=== PATIENT | female | born 1955 | race Hispanic/Latino ===

== ENCOUNTER 2023-10-21 15:48 | Inpatient (IN) | payer MEDICARE ==
[2023-10-21 16:40] LABS: #Eosinphils 0.1 10x3/uL (0.0-0.5); #Monocytes 0.6 10x3/uL (0.0-1.1); #Neutrophils 3.7 10x3/uL (1.5-8.4); %Basophils 0.4 % (0.0-2.0); %Eosinophils 1.9 % (0.0-6.0); %Monocytes 12.3 % (0.0-10.0); %Neutrophils 71.2 % (40.0-75.0); Hematocrit 32.1 % (34.9-44.5); Hemoglobin 10.5 g/dL (12.0-15.5); Mean Corpuscular HGB CONC 32.7 g/dL (32.0-36.0); Mean Corpuscular Hemoglobin 32.5 pg (27.0-33.0); Mean Corpuscular Volume 99.4 fl (81.6-98.3); Mean Platelet Volume 12.4 fl (7.4-10.4); Platelet Count 111 10x3/uL (150-450); RBC Distribution Width 17.6 % (11.5-14.5); Red Blood Cell (RBC) Count 3.23 10x6/uL (3.90-5.03); White Blood Cell (WBC) Count 5.1 10x3/uL (3.5-10.5)
[2023-10-21 16:44] LABS: ALT (SGPT) 80 U/L (8-55); AST (SGOT) 238 U/L (5-34); Albumin 2.6 g/dL (3.4-4.8); Alcohol Less than 10.0 mg/dL (Less than 10); Alkaline Phosphatase 107 U/L (40-110); Anion Gap 13 mmol/L (10-20); BUN (Urea Nitrogen) 9 mg/dL (9.8-20.1); Bilirubin, Total 1.9 mg/dL (0.2-1.2); Calc. Creatinine Clearance 0 mL/min (70-130); Calcium 8.2 mg/dL (7.8-10.44); Carbon Dioxide 32 mmol/L (23-31); Chloride 98 mmol/L (98-107); Estimated GFR 96; Glucose 99 mg/dL (80-115); Lipase 20 U/L (8-78); Magnesium 1.3 mg/dL (1.6-2.6); Protein, Total 6.6 g/dL (5.8-8.1); Sodium 140 mmol/L (136-145)
[2023-10-21 16:50] LABS: Troponin I 0.018 ng/mL (< 0.028)
[2023-10-21 16:56] LABS: Anisocytosis SLIGHT = 6-15 cells (100X) (0-5/hpf); Hypochromia SLIGHT = 6-15 cells (100X) (0-5/hpf); Large Platelets SLIGHT (None Seen); Platelet Adequacy Comment Appears Decreased; Polychromasia SLIGHT = 2-3 cells (100X) (0-2/hpf)
[2023-10-21 17:06] LABS: Amphetamine Not Detected (NotDetected); Barbiturates Screen Not Detected (NotDetected); Benzodiazepine Screen Not Detected (NotDetected); Cocaine Metabolite Screen Not Detected (NotDetected); Methadone Not Detected (NotDetected); Methamphetamine Not Detected (NotDetected); Opiate Screen Detected (NotDetected); Oxycodone Screen Detected (NotDetected); Phencyclidine (PCP) Not Detected (NotDetected); THC/Cannabinoid Screen Not Detected (NotDetected); Tricyclic Screen Not Detected (NotDetected)
[2023-10-21 17:07] LABS: Bilirubin Neg (Negative); Blood, Urine 250 (Negative); Clarity Slightly Cloudy (Clear); Glucose, Urine (Dipstick) Normal (Negative); Ketone, Urine Negative (Negative); Leukocyte 25 (Negative); Nitrite Negative (Negative); Protein, Urine (Dipstick) 30 mg/dl (Neg-Trace)
[2023-10-21 17:22] LABS: CAUTI Indications for Culture Pelvic or flank pain; RBC/HPF Greater than 50 HPF (0-3); Squamous Epithelial 0-3 HPF (0-3); WBC/HPF 0-3 HPF (0-3)
[2023-10-21 17:23] LABS: Bacteria/HPF Rare-Few HPF (None Seen)
[2023-10-21 17:24] LABS: Urine Culture Reflex No No
[2023-10-21] MEDS ORDERED: Potassium Chloride 20 MEQ TAB ONE (17:27)
[2023-10-21] MEDS ORDERED: Magnesium 2 GM/50 ML BAG (IN WATER) ONE (17:28)
[2023-10-21] MEDS ORDERED: Ketorolac Tromethamine 30 MG (1 mL) VIAL ONE (18:16)
[2023-10-21] MEDS ORDERED: Furosemide 40 MG (4 mL) VIAL ONE (19:04)
[2023-10-21] MEDS ORDERED: Ondansetron PF 4 MG/2 ML Vial IVP PRN (20:38)
[2023-10-21] MEDS ORDERED: Guaifenesin DM 100-10/5 ML UDCUP PO PRN (20:38)
[2023-10-21] MEDS ORDERED: Glucagon 1 MG/ML KIT IM PRN (20:38)
[2023-10-21] MEDS ORDERED: Dextrose 50% Abboject 50 ML SYRINGE SLOW IVP PRN (20:38)
[2023-10-21] MEDS ORDERED: Calcium Carbonate 500 MG ChewTAB PO PRN (20:38)
[2023-10-21] MEDS ORDERED: Senokot S 8.6-50 MG TAB PO PRN (20:38)
[2023-10-21] MEDS ORDERED: HumaLOG 300 UNITS/3 ML VIAL SC PRN (20:38)
[2023-10-21] MEDS ORDERED: Dextrose 5% in Water 1,000 ML IV PRN (20:38)
[2023-10-21] MEDS ORDERED: traZODone HCl 50 MG TAB PO PRN (20:42)
[2023-10-21] MEDS ORDERED: Potassium Chloride 20 MEQ TAB PO SCH (20:45)
[2023-10-21] MEDS ORDERED: Magnesium 2 GM/50 ML(in water) 2 GM in Premix 1 BAG IVPB SCH (21:00)
[2023-10-21] MEDS: oxyCODONE 5 MG TAB PO PRN (23:14)
[2023-10-21] MEDS: Nadolol 40 MG TAB PO SCH (23:43)
[2023-10-21] MEDS: Rifaximin 550 MG TAB PO SCH (23:43)
[2023-10-21] MEDS: Albumin 25% 25 GM (100 mL) BOT IVPB SCH (23:51)
[2023-10-22 03:33] LABS: #Eosinphils 0.1 10x3/uL (0.0-0.5); #Monocytes 0.5 10x3/uL (0.0-1.1); #Neutrophils 2.9 10x3/uL (1.5-8.4); %Basophils 0.5 % (0.0-2.0); %Eosinophils 2.2 % (0.0-6.0); %Lymphocytes 13.8 % (18.0-47.0); %Neutrophils 70.3 % (40.0-75.0); Hemoglobin 9.3 g/dL (12.0-15.5); Mean Corpuscular HGB CONC 32.1 g/dL (32.0-36.0); Mean Corpuscular Hemoglobin 31.8 pg (27.0-33.0); Mean Corpuscular Volume 99.3 fl (81.6-98.3); Platelet Count 99 10x3/uL (150-450); RBC Distribution Width 17.5 % (11.5-14.5); Red Blood Cell (RBC) Count 2.92 10x6/uL (3.90-5.03); White Blood Cell (WBC) Count 4.1 10x3/uL (3.5-10.5)
[2023-10-22] MEDS: oxyCODONE 5 MG TAB PO PRN ×6 (03:33→21:12)
[2023-10-22 04:01] LABS: ALT (SGPT) 68 U/L (8-55); AST (SGOT) 187 U/L (5-34); Albumin 2.9 g/dL (3.4-4.8); Alkaline Phosphatase 90 U/L (40-110); Anion Gap 11 mmol/L (10-20); BUN (Urea Nitrogen) 10 mg/dL (9.8-20.1); Calc. Creatinine Clearance 85 mL/min (70-130); Calcium 8.3 mg/dL (7.8-10.44); Carbon Dioxide 33 mmol/L (23-31); Chloride 99 mmol/L (98-107); Estimated GFR 94; Globulin 3.4 g/dL (2.4-3.5); Glucose 131 mg/dL (80-115); Magnesium 2.1 mg/dL (1.6-2.6); Potassium 3.5 mmol/L (3.5-5.1); Protein, Total 6.3 g/dL (5.8-8.1); Sodium 139 mmol/L (136-145)
[2023-10-22 04:02] LABS: Troponin I 0.012 ng/mL (< 0.028)
[2023-10-22 04:18] LABS: INR-International Normal Ratio 1.3; PTT 28.4 sec (22.0-33.0); Prothrombin Time 13.5 sec (9.5-12.1)
[2023-10-22 04:20] LABS: Ovalocytes SLIGHT = 2-5 cells (100X) (0-1/hpf); Platelet Adequacy Comment Appears Decreased; Tear Drops SLIGHT = 2-5 cells (100X) (0-1/hpf)
[2023-10-22] MEDS: Ciprofloxacin 500 MG TAB PO SCH ×2 (06:14→20:25)
[2023-10-22] MEDS: Furosemide 40 MG (4 mL) VIAL SLOW IVP SCH ×2 (06:14→14:11)
[2023-10-22] MEDS: Albumin 25% 25 GM (100 mL) BOT IVPB SCH ×3 (06:15→17:41)
[2023-10-22] MEDS: Spironolactone 25 MG TAB PO SCH (08:35)
[2023-10-22] MEDS: Rifaximin 550 MG TAB PO SCH ×2 (08:36→20:25)
[2023-10-22] MEDS: Multivitamin W/ Minerals 1 TAB PO SCH (08:36)
[2023-10-22] MEDS: Enoxaparin 40 MG (0.4 mL) SYRINGE SC SCH (08:36)
[2023-10-22] MEDS: T PO SCH (08:36)
[2023-10-22] MEDS: Thiamine 100 MG TAB PO SCH (08:36)
[2023-10-22] MEDS: Folic Acid 1 MG TAB PO SCH (08:36)
[2023-10-22] MEDS: Lactulose 20 GM (30 mL) UDCUP PO SCH (08:37)
[2023-10-22] MEDS: Losartan 25 MG TAB PO SCH (08:37)
[2023-10-22] MEDS: Nadolol 40 MG TAB PO SCH (20:27)
[2023-10-23] MEDS: Ciprofloxacin 500 MG TAB PO SCH ×2 (06:30→20:44)
[2023-10-23] MEDS: Furosemide 40 MG (4 mL) VIAL SLOW IVP SCH ×2 (06:30→14:09)
[2023-10-23] MEDS: oxyCODONE 5 MG TAB PO PRN ×4 (06:37→22:27)
[2023-10-23] MEDS: Lactulose 20 GM (30 mL) UDCUP PO SCH (08:13)
[2023-10-23] MEDS: Spironolactone 25 MG TAB PO SCH (08:14)
[2023-10-23] MEDS: T PO SCH (08:14)
[2023-10-23] MEDS: Losartan 25 MG TAB PO SCH (08:14)
[2023-10-23] MEDS: Thiamine 100 MG TAB PO SCH (08:14)
[2023-10-23] MEDS: Folic Acid 1 MG TAB PO SCH (08:14)
[2023-10-23] MEDS: Multivitamin W/ Minerals 1 TAB PO SCH (08:14)
[2023-10-23] MEDS: Rifaximin 550 MG TAB PO SCH ×2 (08:14→20:45)
[2023-10-23 09:42] LABS: Hematocrit 32.7 % (34.9-44.5); Hemoglobin 10.8 g/dL (12.0-15.5); Mean Corpuscular Hemoglobin 32.6 pg (27.0-33.0); Mean Corpuscular Volume 98.8 fl (81.6-98.3); Mean Platelet Volume 12.3 fl (7.4-10.4); Platelet Count 104 10x3/uL (150-450); Red Blood Cell (RBC) Count 3.31 10x6/uL (3.90-5.03); White Blood Cell (WBC) Count 4.7 10x3/uL (3.5-10.5)
[2023-10-23] MEDS: Enoxaparin 40 MG (0.4 mL) SYRINGE SC SCH (09:58)
[2023-10-23 09:59] LABS: Anion Gap 18 mmol/L (10-20); BUN (Urea Nitrogen) 10 mg/dL (9.8-20.1); Calc. Creatinine Clearance 73 mL/min (70-130); Calcium 9.2 mg/dL (7.8-10.44); Carbon Dioxide 33 mmol/L (23-31); Chloride 92 mmol/L (98-107); Estimated GFR 80; Glucose 119 mg/dL (80-115); Potassium 4.1 mmol/L (3.5-5.1); Sodium 139 mmol/L (136-145)
[2023-10-23] MEDS: Nadolol 40 MG TAB PO SCH (20:45)
[2023-10-24] MEDS: oxyCODONE 5 MG TAB PO PRN ×5 (03:25→19:31)
[2023-10-24] MEDS: Furosemide 40 MG (4 mL) VIAL SLOW IVP SCH (06:25)
[2023-10-24] MEDS: Ciprofloxacin 500 MG TAB PO SCH ×2 (06:25→21:07)
[2023-10-24 08:04] LABS: #Eosinphils 0.1 10x3/uL (0.0-0.5); #Monocytes 1.2 10x3/uL (0.0-1.1); #Neutrophils 4.5 10x3/uL (1.5-8.4); %Basophils 0.5 % (0.0-2.0); %Eosinophils 1.7 % (0.0-6.0); %Monocytes 18.1 % (0.0-10.0); %Neutrophils 68.4 % (40.0-75.0); Hematocrit 34.5 % (34.9-44.5); Hemoglobin 11.3 g/dL (12.0-15.5); Mean Corpuscular HGB CONC 32.8 g/dL (32.0-36.0); Mean Corpuscular Hemoglobin 31.4 pg (27.0-33.0); Mean Corpuscular Volume 95.8 fl (81.6-98.3); Mean Platelet Volume 12.8 fl (7.4-10.4); Platelet Count 132 10x3/uL (150-450); RBC Distribution Width 16.9 % (11.5-14.5); White Blood Cell (WBC) Count 6.5 10x3/uL (3.5-10.5)
[2023-10-24 08:05] LABS: Anion Gap 17 mmol/L (10-20); BUN (Urea Nitrogen) 14 mg/dL (9.8-20.1); Calc. Creatinine Clearance 72 mL/min (70-130); Calcium 9.2 mg/dL (7.8-10.44); Carbon Dioxide 32 mmol/L (23-31); Chloride 90 mmol/L (98-107); Estimated GFR 79; Glucose 122 mg/dL (80-115); Potassium 3.4 mmol/L (3.5-5.1); Sodium 136 mmol/L (136-145)
[2023-10-24] MEDS: Spironolactone 25 MG TAB PO SCH (08:39)
[2023-10-24] MEDS: T PO SCH (09:38)
[2023-10-24] MEDS: Losartan 25 MG TAB PO SCH (09:39)
[2023-10-24] MEDS: Folic Acid 1 MG TAB PO SCH (09:39)
[2023-10-24] MEDS: Multivitamin W/ Minerals 1 TAB PO SCH (09:40)
[2023-10-24] MEDS: Thiamine 100 MG TAB PO SCH (09:41)
[2023-10-24] MEDS: Enoxaparin 40 MG (0.4 mL) SYRINGE SC SCH (09:41)
[2023-10-24] MEDS: Lactulose 20 GM (30 mL) UDCUP PO SCH (09:43)
[2023-10-24] MEDS: Rifaximin 550 MG TAB PO SCH ×2 (09:43→21:07)
[2023-10-24] MEDS ORDERED: Potassium Chloride 20 MEQ TAB PO SCH (10:00)
[2023-10-24] MEDS: Nadolol 40 MG TAB PO SCH (21:07)
[2023-10-25] MEDS: oxyCODONE 5 MG TAB PO PRN ×5 (00:41→19:43)
[2023-10-25 01:39] LABS: #Monocytes 1.7 10x3/uL (0.0-1.1); #Neutrophils 6.2 10x3/uL (1.5-8.4); %Basophils 0.5 % (0.0-2.0); %Eosinophils 0.5 % (0.0-6.0); %Monocytes 19.8 % (0.0-10.0); %Neutrophils 69.7 % (40.0-75.0); Hematocrit 33.2 % (34.9-44.5); Hemoglobin 10.9 g/dL (12.0-15.5); Mean Corpuscular HGB CONC 32.8 g/dL (32.0-36.0); Mean Corpuscular Hemoglobin 31.2 pg (27.0-33.0); Mean Corpuscular Volume 95.1 fl (81.6-98.3); Mean Platelet Volume 13.2 fl (7.4-10.4); Platelet Count 118 10x3/uL (150-450); RBC Distribution Width 16.9 % (11.5-14.5); Red Blood Cell (RBC) Count 3.49 10x6/uL (3.90-5.03); White Blood Cell (WBC) Count 8.8 10x3/uL (3.5-10.5)
[2023-10-25 01:40] LABS: ALT (SGPT) 38 U/L (8-55); AST (SGOT) 62 U/L (5-34); Albumin 3.3 g/dL (3.4-4.8); Alkaline Phosphatase 93 U/L (40-110); Anion Gap 17 mmol/L (10-20); BUN (Urea Nitrogen) 16 mg/dL (9.8-20.1); Bilirubin, Total 2.8 mg/dL (0.2-1.2); Calc. Creatinine Clearance 73 mL/min (70-130); Calcium 9.1 mg/dL (7.8-10.44); Carbon Dioxide 29 mmol/L (23-31); Chloride 93 mmol/L (98-107); Estimated GFR 79; Globulin 3.7 g/dL (2.4-3.5); Glucose 140 mg/dL (80-115); Magnesium 1.3 mg/dL (1.6-2.6); Potassium 3.8 mmol/L (3.5-5.1); Sodium 135 mmol/L (136-145)
[2023-10-25] MEDS ORDERED: Potassium Chloride 20 MEQ TAB PO SCH (03:00)
[2023-10-25] MEDS ORDERED: Magnesium 2 GM/50 ML(in water) 2 GM in Premix 1 BAG IVPB SCH (03:00)
[2023-10-25] MEDS ORDERED: Acetaminophen 325 MG TAB PO PRN (03:04)
[2023-10-25] MEDS ORDERED: traMADol HCl 50 MG TAB PO SCH (03:15)
[2023-10-25] MEDS ORDERED: Lidocaine 4% Patch TD SCH (03:15)
[2023-10-25] MEDS: Ciprofloxacin 500 MG TAB PO SCH ×2 (06:08→20:35)
[2023-10-25] MEDS: Enoxaparin 40 MG (0.4 mL) SYRINGE SC SCH (09:50)
[2023-10-25] MEDS: Multivitamin W/ Minerals 1 TAB PO SCH (09:50)
[2023-10-25] MEDS: Magnesium Oxide 400 MG TAB PO SCH ×2 (09:50→20:33)
[2023-10-25] MEDS: Losartan 25 MG TAB PO SCH (09:51)
[2023-10-25] MEDS: Lactulose 20 GM (30 mL) UDCUP PO SCH ×2 (09:51→10:00)
[2023-10-25] MEDS: Folic Acid 1 MG TAB PO SCH (09:51)
[2023-10-25] MEDS: Rifaximin 550 MG TAB PO SCH ×2 (09:51→20:34)
[2023-10-25] MEDS: T PO SCH (09:51)
[2023-10-25] MEDS: Spironolactone 25 MG TAB PO SCH (09:51)
[2023-10-25] MEDS: Thiamine 100 MG TAB PO SCH (09:51)
[2023-10-25] MEDS: Furosemide 40 MG TAB PO SCH (09:55)
[2023-10-25] MEDS ORDERED: LIDOCAINE Patch Removal TOP SCH (15:15)
[2023-10-25] MEDS: Nadolol 40 MG TAB PO SCH (20:34)
[2023-10-26] MEDS: oxyCODONE 5 MG TAB PO PRN ×6 (00:08→20:48)
[2023-10-26 04:09] LABS: Anion Gap 15 mmol/L (10-20); BUN (Urea Nitrogen) 20 mg/dL (9.8-20.1); Calc. Creatinine Clearance 73 mL/min (70-130); Calcium 9.1 mg/dL (7.8-10.44); Carbon Dioxide 30 mmol/L (23-31); Chloride 94 mmol/L (98-107); Estimated GFR 80; Glucose 105 mg/dL (80-115); Magnesium 1.9 mg/dL (1.6-2.6); Potassium 3.9 mmol/L (3.5-5.1); Sodium 135 mmol/L (136-145)
[2023-10-26] MEDS: Ciprofloxacin 500 MG TAB PO SCH ×2 (06:02→20:50)
[2023-10-26] MEDS: Folic Acid 1 MG TAB PO SCH (08:18)
[2023-10-26] MEDS: Thiamine 100 MG TAB PO SCH (08:18)
[2023-10-26] MEDS: Multivitamin W/ Minerals 1 TAB PO SCH (08:18)
[2023-10-26] MEDS: Losartan 25 MG TAB PO SCH (08:18)
[2023-10-26] MEDS: Spironolactone 25 MG TAB PO SCH (08:18)
[2023-10-26] MEDS: T PO SCH (08:18)
[2023-10-26] MEDS: Furosemide 40 MG TAB PO SCH (08:18)
[2023-10-26] MEDS: Rifaximin 550 MG TAB PO SCH ×2 (08:18→20:50)
[2023-10-26] MEDS: Lactulose 20 GM (30 mL) UDCUP PO SCH (08:19)
[2023-10-26] MEDS: Enoxaparin 40 MG (0.4 mL) SYRINGE SC SCH (08:19)
[2023-10-26] MEDS: Nadolol 40 MG TAB PO SCH (20:49)
[2023-10-27] MEDS: oxyCODONE 5 MG TAB PO PRN ×4 (01:13→22:56)
[2023-10-27 03:48] LABS: Anion Gap 15 mmol/L (10-20); BUN (Urea Nitrogen) 22 mg/dL (9.8-20.1); Calc. Creatinine Clearance 73 mL/min (70-130); Carbon Dioxide 28 mmol/L (23-31); Chloride 93 mmol/L (98-107); Estimated GFR 80; Glucose 118 mg/dL (80-115); Magnesium 1.8 mg/dL (1.6-2.6); Potassium 3.2 mmol/L (3.5-5.1); Sodium 133 mmol/L (136-145)
[2023-10-27] MEDS ORDERED: Magnesium 2 GM/50 ML(in water) 2 GM in Premix 1 BAG IVPB SCH (09:00)
[2023-10-27] MEDS ORDERED: Sodium Chloride 0.9% 500 ML IV SCH ×2 (09:00→09:07)
[2023-10-27] MEDS: Ciprofloxacin 500 MG TAB PO SCH (09:14)
[2023-10-27] MEDS: Spironolactone 25 MG TAB PO SCH (09:14)
[2023-10-27] MEDS: Furosemide 40 MG TAB PO SCH (09:14)
[2023-10-27 10:46] VITALS: BMI 25.7
[2023-10-27] MEDS: Folic Acid 1 MG TAB PO SCH (11:13)
[2023-10-27] MEDS: Lactulose 20 GM (30 mL) UDCUP PO SCH (11:13)
[2023-10-27] MEDS: Losartan 25 MG TAB PO SCH (11:13)
[2023-10-27] MEDS: Enoxaparin 40 MG (0.4 mL) SYRINGE SC SCH (11:13)
[2023-10-27] MEDS: Multivitamin W/ Minerals 1 TAB PO SCH (11:14)
[2023-10-27] MEDS: Potassium Chloride 20 MEQ TAB PO SCH ×2 (11:14→14:22)
[2023-10-27] MEDS: Thiamine 100 MG TAB PO SCH (11:14)
[2023-10-27] MEDS: Rifaximin 550 MG TAB PO SCH ×2 (11:14→21:41)
[2023-10-27] MEDS: T PO SCH (11:14)
[2023-10-27 13:33] LABS: Anion Gap 18 mmol/L (10-20); BUN (Urea Nitrogen) 25 mg/dL (9.8-20.1); Calc. Creatinine Clearance 66 mL/min (70-130); Calcium 9.5 mg/dL (7.8-10.44); Carbon Dioxide 27 mmol/L (23-31); Chloride 96 mmol/L (98-107); Estimated GFR 72; Glucose 117 mg/dL (80-115); Potassium 4.4 mmol/L (3.5-5.1); Sodium 137 mmol/L (136-145)
[2023-10-27] MEDS: Nadolol 40 MG TAB PO SCH (21:41)
[2023-10-28] MEDS: oxyCODONE 5 MG TAB PO PRN ×2 (02:08→06:41)
[2023-10-28 04:58] LABS: #Basophils 0.1 10x3/uL (0.0-0.2); #Eosinphils 0.2 10x3/uL (0.0-0.5); #Monocytes 1.1 10x3/uL (0.0-1.1); #Neutrophils 4.8 10x3/uL (1.5-8.4); %Basophils 0.9 % (0.0-2.0); %Eosinophils 2.7 % (0.0-6.0); %Lymphocytes 11.8 % (18.0-47.0); %Monocytes 15.4 % (0.0-10.0); %Neutrophils 68.8 % (40.0-75.0); Hematocrit 31.4 % (34.9-44.5); Hemoglobin 10.3 g/dL (12.0-15.5); Mean Corpuscular HGB CONC 32.8 g/dL (32.0-36.0); Mean Corpuscular Hemoglobin 31.2 pg (27.0-33.0); Mean Corpuscular Volume 95.2 fl (81.6-98.3); Mean Platelet Volume 13.6 fl (7.4-10.4); Platelet Count 129 10x3/uL (150-450); RBC Distribution Width 16.6 % (11.5-14.5)
[2023-10-28 05:04] LABS: Anion Gap 12 mmol/L (10-20); BUN (Urea Nitrogen) 21 mg/dL (9.8-20.1); Calc. Creatinine Clearance 82 mL/min (70-130); Calcium 8.7 mg/dL (7.8-10.44); Carbon Dioxide 27 mmol/L (23-31); Chloride 99 mmol/L (98-107); Estimated GFR 93; Glucose 100 mg/dL (80-115); Magnesium 2.1 mg/dL (1.6-2.6); Potassium 4.6 mmol/L (3.5-5.1); Sodium 133 mmol/L (136-145)
[2023-10-28 08:08] VITALS: BP 117/58; TEMP 98
[2023-10-28] MEDS: Lactulose 20 GM (30 mL) UDCUP PO SCH (09:16)
[2023-10-28] MEDS: Multivitamin W/ Minerals 1 TAB PO SCH (09:17)
[2023-10-28] MEDS: Rifaximin 550 MG TAB PO SCH (09:17)
[2023-10-28] MEDS: Folic Acid 1 MG TAB PO SCH (09:17)
[2023-10-28] MEDS: T PO SCH (09:17)
[2023-10-28] MEDS: Enoxaparin 40 MG (0.4 mL) SYRINGE SC SCH (09:18)
[2023-10-28] MEDS: Losartan 25 MG TAB PO SCH (09:18)
[2023-10-28] MEDS: Thiamine 100 MG TAB PO SCH (09:18)
== END 2023-10-28 09:27 | DRG 291 ==
LOC: CSHERS 15:48 → CSHTELE 20:44 → CSHIMCU 10-22 09:31 → CSHTELE 10-23 17:15
PROVIDERS: ADMIT Student in an Organized Health Care Education/Training Program; ATTEND Internal Medicine
PROC: 2W35X3Z Immobilization of Back using Brace (ICD-10-PCS; principal; 2023-10-23)
DX: I11.0 Hypertensive heart disease with heart failure (principal); I50.23 Acute on chronic systolic (congestive) heart failure; S22.029A Unspecified fracture of second thoracic vertebra, initial encounter for closed fracture; S22.039A Unspecified fracture of third thoracic vertebra, initial encounter for closed fracture; S22.059A Unspecified fracture of T5-T6 vertebra, initial encounter for closed fracture; S22.069A Unspecified fracture of T7-T8 vertebra, initial encounter for closed fracture; R18.8 Other ascites; N39.0 Urinary tract infection, site not specified; E87.1 Hypo-osmolality and hyponatremia; E87.6 Hypokalemia; E83.42 Hypomagnesemia; F10.20 Alcohol dependence, uncomplicated; E11.9 Type 2 diabetes mellitus without complications; F31.9 Bipolar disorder, unspecified; F41.9 Anxiety disorder, unspecified; E88.09 Other disorders of plasma-protein metabolism, not elsewhere classified; R14.0 Abdominal distension (gaseous); K74.60 Unspecified cirrhosis of liver; D69.6 Thrombocytopenia, unspecified; Z91.040 Latex allergy status; Z88.8 Allergy status to other drugs, medicaments and biological substances; Z79.899 Other long term (current) drug therapy; Z98.891 History of uterine scar from previous surgery; Z90.49 Acquired absence of other specified parts of digestive tract; Z98.890 Other specified postprocedural states
CPT/HCPCS: 36415; 36416; 71045; 71275; 76705; 80048; 80053; 80306; 80307; 81001; 82140; 83690; 83735; 83880; 84443; 84484; 85025; 85027; 85379; 85610; 85730; 93005; 96374; 96375; J1650; J1815; J1885; J1940; J3475; P9047